=== PATIENT | female | born 1970 | race Caucasian/White ===

== ENCOUNTER 2021-08-14 01:43 | Inpatient (IN) | payer OTHER ==
[~2021-08-14] VITALS: Ht 167.6 cm; Wt 69.9 kg
[2021-08-14] MEDS ORDERED: CLONAZEPAM1 MG PO (13:39)
[2021-08-14] MEDS ORDERED: VITAMIN D21250 MCG PO (13:39)
[2021-08-14] MEDS ORDERED: NEXIUM40 MG PO (13:39)
[2021-08-14] MEDS ORDERED: FUROSEMIDE20 MG PO (13:40)
[2021-08-14] MEDS ORDERED: FENOFIBRATE145 MG PO (13:40)
[2021-08-14] MEDS ORDERED: GABAPENTIN600 MG PO (13:40)
[2021-08-14] MEDS ORDERED: DOTTI1 EAC1 TD (13:40)
[2021-08-14] MEDS ORDERED: MECLIZINE HCL25 MG PO (13:40)
[2021-08-14] MEDS ORDERED: PROMETHAZINE HC25 M1 PO (13:41)
[2021-08-14] MEDS ORDERED: METOPROLOL TART25 MG PO (13:41)
[2021-08-14] MEDS ORDERED: SERTRALINE HCL100 MG PO (13:42)
[2021-08-14] MEDS ORDERED: SPIRONOLACTONE25 MG PO (13:42)
[2021-08-14] MEDS ORDERED: ROPINIROLE HCL1 MG PO (13:42)
[2021-08-14] MEDS ORDERED: TRAZODONE HCL50 MG PO (13:42)
[2021-08-14] MEDS ORDERED: IMITREX50 MG PO (13:43)
[2021-08-14] MEDS ORDERED: VISTARIL 50 MG50 MG PO (13:43)
[2021-08-14 14:47] LABS: HEMOGLOBIN 9.5 gm/dl (12.3-15.3); RED BLOOD COUNT 2.54 M/UL (4.00-5.10); WHITE BLOOD COUNT 11.5 K/UL (4.5-11.0)
[2021-08-14 15:37] LABS: BUN/CREATININE RATIO 36 (0-10)
[2021-08-14 16:53] LABS: BORDETELLA PARAPERTUSSIS Not Detected (Not Detectd); BORDETELLA PERTUSSIS Not Detected (Not Detectd); CHLAMYDIA PNEUMONIAE Not Detected (Not Detectd); CORONAVIRUS HKU1 Not Detected (Not Detectd); CORONAVIRUS NL63 Not Detected (Not Detectd); CORONAVIRUS OC43 Not Detected (Not Detectd); CORONOAVIRUS 229E Not Detected (Not Detectd); HUMAN METAPNEUMOVIRUS Not Detected (Not Detectd); HUMAN RHINOVIRUS/ENTEROVIRUS Not Detected (Not Detectd); INFLUENZA A Not Detected (Not Detectd); INFLUENZA B Not Detected (Not Detectd); MYCOPLASMA PNEUMONIAE Not Detected (Not Detectd); PARAINFLUENZA VIRUS 1 Not Detected (Not Detectd); PARAINFLUENZA VIRUS 2 Not Detected (Not Detectd); PARAINFLUENZA VIRUS 3 Not Detected (Not Detectd); PARAINFLUENZA VIRUS 4 Not Detected (Not Detectd); RESPIRATORY SYNCYTIAL VIRUS Not Detected (Not Detectd)
[2021-08-14 17:48] LABS: SARS-CoV-2 NOT DETECTED (Not Detectd)
[2021-08-16 03:28] LABS: BUN/CREATININE RATIO 32 (0-10)
[2021-08-16 03:36] LABS: HEMOGLOBIN 8.4 gm/dl (12.3-15.3)
[2021-08-16 03:45] LABS: RED BLOOD COUNT 2.23 M/UL (4.00-5.10); WHITE BLOOD COUNT 5.7 K/UL (4.5-11.0)
[2021-08-18 03:04] LABS: HEMOGLOBIN 8.4 gm/dl (12.3-15.3); RED BLOOD COUNT 2.27 M/UL (4.00-5.10)
[2021-08-18 03:15] LABS: WHITE BLOOD COUNT 8.2 K/UL (4.5-11.0)
[2021-08-18 03:45] LABS: BUN/CREATININE RATIO 16 (0-10)
[2021-08-19 08:26] LABS: BUN/CREATININE RATIO 11 (0-10)
[2021-08-19] MEDS ORDERED: AMOX TR-K CLV1 EAC4 PO (16:34)
[2021-08-19] MEDS ORDERED: METOPROLOL TART25 MG PO (16:34)
[2021-08-19] MEDS ORDERED: ASPIRIN EC81 MG PO (16:34)
[2021-08-19] MEDS ORDERED: THERAGRAN M TAB1 EA PO (16:34)
[2021-08-19] MEDS ORDERED: FERROUS GLUCON324 M1 PO (16:34)
== END 2021-08-19 18:43 | disposition home or self-care (01) | DRG 871 ==
LOC: PROG CARE 01:43
PROVIDERS: ADMIT Internal Medicine Infectious Disease
PROC: B24BZZZ Ultrasonography of Heart with Aorta (ICD-10-PCS; principal; 2021-08-15)
PROC: B24BZZZ Ultrasonography of Heart with Aorta (ICD-10-PCS; 2021-08-15)
PROC: 4A023N7 Measurement of Cardiac Sampling and Pressure, Left Heart, Percutaneous Approach (ICD-10-PCS; 2021-08-15)
DX: A41.9 Sepsis, unspecified organism (principal); I21.A1 Myocardial infarction type 2; J18.9 Pneumonia, unspecified organism; Z20.822 Contact with and (suspected) exposure to COVID-19; J96.01 Acute respiratory failure with hypoxia; I31.3 Pericardial effusion (noninflammatory); K86.1 Other chronic pancreatitis; F17.210 Nicotine dependence, cigarettes, uncomplicated; D50.9 Iron deficiency anemia, unspecified; I10 Essential (primary) hypertension; E87.6 Hypokalemia; I50.9 Heart failure, unspecified; F41.9 Anxiety disorder, unspecified; I27.20 Pulmonary hypertension, unspecified; I08.1 Rheumatic disorders of both mitral and tricuspid valves; K21.9 Gastro-esophageal reflux disease without esophagitis; E78.5 Hyperlipidemia, unspecified; F32.A Depression, unspecified; M79.7 Fibromyalgia; I25.10 Atherosclerotic heart disease of native coronary artery without angina pectoris; Z79.82 Long term (current) use of aspirin; Z90.49 Acquired absence of other specified parts of digestive tract; Z90.710 Acquired absence of both cervix and uterus; Z87.19 Personal history of other diseases of the digestive system; Z82.49 Family history of ischemic heart disease and other diseases of the circulatory system; Z71.6 Tobacco abuse counseling; Z87.01 Personal history of pneumonia (recurrent); Z87.442 Personal history of urinary calculi; Z88.6 Allergy status to analgesic agent
CPT/HCPCS: ECHO; 36415; 71045; 80048; 80053; 80061; 82550; 82553; 82607; 82728; 82746; 83540; 83550; 83735; 83880; 84132; 84443; 84484; 85025; 85610; 85730; 86140; 87278; 87633; 93005; 93306; 97116; 97116-GP-CQ; 97162; 99152; C1769; C1887; C1894; J1335; J1644; J1756; J1885; J1956; J2250; J3010; J7040; Q9967